=== PATIENT | female | born 1980 | race Caucasian/White ===

== ENCOUNTER 2018-09-07 20:13 | Inpatient (IN) | payer OTHER ==
[2018-09-07 21:19] LABS: Glucose,Whole Blood 159 mg/dL (75-99)
[2018-09-07 21:53] VITALS: BMI 43.5
[2018-09-07 21:56] LABS: Appearance,Urine Cloudy (Clear); Bilirubin,Urine Negative (Negative); Blood,Urine Negative (Negative); Color,Urine Yellow; Glucose,Urine (UA) Trace (Negative); Granular Casts,Urine 15 /lpf (0); Ketones,Urine Negative (Negative); Leukocyte Esterase,Urine Negative (Negative); Mucus,Urine Occasional /hpf; Nitrite,Urine Negative (Negative); Protein,Urine 1+ (Negative); RBC,Urine 1 /hpf (0-5); Squamous Epithelial Cell,Urine 4 /hpf (0-4); Urobilinogen,Urine <2.0 mg/dL (<2.0); WBC,Urine 1 /hpf (0-5)
[2018-09-07 22:01] LABS: Basophils % (A) 1 %; Eosinophils # (A) 0.1 k/uL (0-0.7); Eosinophils % (A) 1 %; HCT 36.3 % (34.0-46.0); Lymphocytes # (A) 2.1 k/uL (1.0-4.8); Lymphocytes % (A) 25 %; MCH 26.8 pg (25.0-35.0); MCHC 32.9 g/dL (31.0-37.0); MCV 81.5 fL (80.0-100.0); Mean Platelet Volume 8.1; Monocytes # (A) 0.4 k/uL (0-1.0); Monocytes % (A) 5 %; Neutrophils # (A) 5.8 k/uL (1.3-7.7); Neutrophils % (A) 68 %; Platelet Count 223 k/uL (150-450); RBC 4.46 m/uL (3.80-5.40); WBC 8.5 k/uL (3.8-10.6)
[2018-09-07 22:20] LABS: ALT 14 U/L (9-52); AST 11 U/L (14-36); Blood Urea Nitrogen 9 mg/dL (7-17); LDH 342 U/L (313-618); Uric Acid 5.6 mg/dL (3.7-7.4)
[2018-09-08] MEDS ORDERED: METHYLERGONOVINE 0.2 MG/ML 1 ML AMP IM PRN (04:52)
[2018-09-08] MEDS ORDERED: CARBOPROST TROMETHAMINE 250 MCG/ML 1 ML AMP IM PRN (04:52)
[2018-09-08] MEDS ORDERED: OXYTOCIN 10 UNIT/ML 1 ML VIAL IM PRN (04:52)
[2018-09-08] MEDS ORDERED: PENICILLIN G POTASSIUM 5,000,000 UNIT in DEXTROSE 5% IN WATER 100 ML IVPB STA ×2 (04:52)
[2018-09-08] MEDS ORDERED: LIDOCAINE 0.5% (PF) 5 MG/ML (50 ML SDV) SQ PRN (04:52)
[2018-09-08] MEDS ORDERED: TERBUTALINE 1 MG/ML VIAL SQ PRN (04:52)
[2018-09-08] MEDS ORDERED: OXYTOCIN 30 UNITS/500 ML NS 30 UNIT in SALINE 1 500ML.BAG IV SCH (05:00)
[2018-09-08] MEDS: LACTATED RINGERS 1,000 ML IV SCH (05:08)
[2018-09-08 08:08] LABS: Glucose,Whole Blood 96 mg/dL (75-99)
[2018-09-08] MEDS ORDERED: hydrALAZINE HCL 20 MG/ML 1 ML VIAL IVP STA (08:43)
[2018-09-08] MEDS ORDERED: PENICILLIN G POTASSIUM 2,500,000 UNIT in DEXTROSE 5% IN WATER 100 ML IVPB SCH ×2 (08:54)
[2018-09-08] MEDS ORDERED: INSULIN REGULAR 100 UNIT/ML VIAL SQ PRN ×3 (08:56→12:01)
[2018-09-08 09:53] LABS: Glucose,Whole Blood 285 mg/dL (75-99)
[2018-09-08 09:53] LABS: Glucose,Whole Blood 234 mg/dL (75-99)
[2018-09-08] MEDS: AMPICILLIN 1,000 MG in SODIUM CHLORIDE 0.9% 50 ML IVPB SCH (10:02)
[2018-09-08 11:05] LABS: Glucose,Whole Blood 146 mg/dL (75-99)
[2018-09-08 12:21] LABS: Glucose,Whole Blood 137 mg/dL (75-99)
[2018-09-08] MEDS ORDERED: CITRIC ACID-SODIUM CITRATE 15 ML CUP PO ONE ×2 (12:23→12:27)
[2018-09-08] MEDS ORDERED: ceFAZolin 3 GM in SODIUM CHLORIDE 0.9% 100 ML IVPB ONE (12:30)
--- NOTE | 2018-09-08 12:46 | P.HPOB ---
History of Present Illness H&P Date: 09/08/18 Chief Complaint: IUP at 37 0/7 weeks, gestational hypertension, AMA, IDDM This is a 38-year-old 5 para 4004 at 37-0/7 weeks with an estimated due date of 09/29/2018. Patient's has been complicated by a diagnosis of insulin-dependent diabetes mellitus in the first trimester. Patient has been seeing [facility] for comanagement of her insulin-dependent diabetes mellitus. Given patient's morbid obesity she is a difficult patient to follow via ultrasound and did not unreliable with blood sugars. Patient states she was unaware of any blood sugar/diabetes issues prior to . This was an unexpected but she is happy with that. Patient is also advanced maternal age, and declined any genetic screening. and upon monitoring of this fetus LGA was diagnosed. Patient had an ultrasound for growth at [place] yesterday with a weight of 9 pounds, 99th percentile. Patient has been measuring large for gestational age the entire . Patient has been receiving routine care but she is unreliable with blood sugars. On blood work showed blood type of B+, rubella is noted to be nonimmune, hepatitis B surface antigen is negative, HIV is negative, group beta strep is positive. Review of Systems Constitutional: Denies chills, Denies fatigue, Denies fever Ears, nose, mouth and throat: Denies headache Cardiovascular: Reports leg edema Respiratory: Denies cough, Denies dyspnea Gastrointestinal: Denies constipation, Denies diarrhea, Denies nausea, Denies vomiting Genitourinary: Reports Past Medical History Past Medical History: Diabetes Mellitus Additional Past Medical History / Comment(s): Carpal tunnel, arthritis History of Any Multi-Drug Resistant Organisms: None Reported Past Surgical History: Cholecystectomy, Orthopedic Surgery Additional Past Surgical History / Comment(s): Open fx repair right leg, carpal tunnel release bilateral Past Anesthesia/Blood Transfusion Reactions: No Reported Reaction Past Psychological History: No Psychological Hx Reported Smoking Status: Never smoker Past Alcohol Use History: None Reported Past Drug Use History: None Reported - Past Family History Mother Family Medical History: COPD Father History Unknown: Yes Family Medical History: Diabetes Mellitus Sister(s) Additional Family Medical History / Comment(s): cardiomyopathy Medications and Allergies Home Medications Medication Instructions Recorded Confirmed Type Acetaminophen Tab [Tylenol Tab] 1,000 mg PO Q6HR PRN 04/04/18 09/07/18 History Pedi Multivit No.25/Folic Acid 1 tab PO BID 04/04/18 09/07/18 History [Flintstones Multivit Chew Tab] Insulin Glargine,Hum.rec.anlog 20 units SQ HS 09/07/18 09/07/18 History [Basaglar Kwikpen U-100] Insulin Glargine,Hum.rec.anlog 34 units SQ QAM 09/07/18 09/07/18 History [Basaglar Kwikpen U-100] Insulin Lispro [Admelog] 12 units SQ BID 09/07/18 09/07/18 History Allergies Allergy/AdvReac Type Severity Reaction Status Date / Time cortisone Allergy Swelling Verified 09/07/18 20:18 Exam Osteopathic Statement: *. No significant issues noted on an osteopathic structural exam other than those noted in the History and Physical/Consult. Vital Signs Temp Pulse Resp BP Pulse Ox 09/07/18 21:57 97.5 F L 108 H 16 177/98 99 09/07/18 21:42 97.5 F L 96 16 179/89 Intake and Output 09/07/18 09/08/18 09/08/18 22:59 06:59 14:59 Intake Total 100 Output Total 250 Balance -250 100 Intake: Intake, IV Titration 100 Amount Penicillin G Potassium 5, 100 000,000 unit In Dextrose 5% in Water 100 ml @ 100 mls/hr IVPB ONCE STA Rx#: [id number] Output: Urine 250 Other: Weight 126.2 kg Targeted physical exam was performed in general this is a well-nourished well- developed female in no acute distress, she is noted to have nonlabored breathing heart is known to have regular rate and rhythm, abdomen is morbidly obese, heart tones are noted to be category 1 with moderate variability contractions are difficult to appreciate secondary to her morbid obesity, on cervical exam she is 3/70/-2 amniotomy is performed and clear fluid was obtained. Results Result Diagrams: 09/07/18 21:19 09/07/18 21:19 Abnormal Lab Results - Last 24 Hours (Table) 09/07/18 09/07/18 09/07/18 Range/Units 21:03 21:03 21:17 RDW (11.5-15.5) % POC Glucose (mg/dL) 159 H (75-99) mg/dL AST (14-36) U/L Urine Appearance Cloudy H (Clear) Urine Protein 1+ H (Negative) Urine Glucose (UA) Trace H (Negative) Urine Mucus Occasional H (None) /hpf U Random Total Protein 70 H (<12) mg/dL 09/07/18 09/07/18 Range/Units 21:19 21:19 RDW 16.0 H (11.5-15.5) % POC Glucose (mg/dL) (75-99) mg/dL AST 11 L (14-36) U/L Urine Appearance (Clear) Urine Protein (Negative) Urine Glucose (UA) (Negative) Urine Mucus (None) /hpf U Random Total Protein (<12) mg/dL Assessment and Plan (1) 37 weeks gestation of Current Visit: Yes Status: Acute Code(s): Z3A.37 - 37 WEEKS GESTATION OF SNOMED Code(s): 21957444 (2) Diabetes Current Visit: Yes Status: Acute Code(s): E11.9 - TYPE 2 DIABETES MELLITUS WITHOUT COMPLICATIONS SNOMED Code(s): 42959153 (3) AMA (advanced maternal age) multigravida 35+ Current Visit: Yes Status: Acute Code(s): O09.529 - SUPERVISION OF ELDERLY MULTIGRAVIDA, UNSPECIFIED TRIMESTER SNOMED Code(s): 858483572 (4) LGA (large for gestational age) fetus Current Visit: Yes Status: Acute Code(s): MKE2284 - SNOMED Code(s): 796301130 (5) Positive GBS test Current Visit: Yes Status: Acute Code(s): B95.1 - STREPTOCOCCUS, GROUP B, CAUSING DISEASES [facility]SD [facility] SNOMED Code(s): 7374958447499 Plan: Patient is admitted to labor and delivery for induction of labor secondary to gestational hypertension, advanced maternal age, diabetes, insulin-dependent, LGA. Patient had negative preeclampsia labs on admission last evening. Patient is noted to be group beta strep positive and antibiotics have been started. We will monitor blood sugars every 2 hours while in labor. If blood sugars are up of 120, we will administer 1 unit of insulin for every 20 above that level. Patient is aware of this plan. We anticipate spontaneous vaginal delivery later this afternoon.
[2018-09-08] MEDS ORDERED: MORPHINE SULFATE (PF) 0.3 MG/0.3 ML SYR ONE (12:52)
[2018-09-08] MEDS ORDERED: KETOROLAC 30 MG/ML 1 ML VIAL ONE (12:52)
[2018-09-08] MEDS ORDERED: NALBUPHINE 10 MG/ML (1 ML AMP) ONE (12:52)
[2018-09-08] MEDS ORDERED: ONDANSETRON 4 MG/2 ML VIAL ONE (12:52)
--- NOTE | 2018-09-08 13:52 | P.OP ---
Date of Procedure: 09/08/18 Preoperative Diagnosis: IUP @ 37 0/7 weeks uncontrolled IDDM, AMA, LGA, NRFHTs Postoperative Diagnosis: same Procedure(s) Performed: Primary LTCS Anesthesia: spinal Surgeon: Becki Lopez Acute Dialysis Nurse #1: Mahnaz Loo Estimated Blood Loss (ml): 500 IV fluids (ml): 800 Urine output (ml): 200 Pathology: other (placenta) Condition: stable Disposition: observation Indications for Procedure: This very pleasant 38-year-old 5 para 4 was admitted for gestational hypertension, uncontrolled diabetes mellitus, LGA, AMA. With comanagement from [facility] recommendation for delivery given size and uncontrolled diabetes was delivery at 37 weeks. Patient was started on Pitocin induction of labor on 5 AM as patient has progressed through Pitocin protocol minimal variability along with occasional lates are noted. Discussion with the patient regarding nonreassuring heart tones despite Pitocin being off is had with the patient. Need for is discussed in detail risks are reviewed including but not limited to infection, bleeding, damage to bladder, bowel, other pelvic structures. Patient states understanding of need for procedure and risks that are stated above. Will proceed to the operating room. Operative Findings: Normal uterus tubes and ovaries male infant delivered at 1314, weight of 9 lbs. 6 oz Description of Procedure: The patient was prepped and draped in the usual fashion after spinal anesthesia was administered by the anesthesia department. A Pfannenstiel incision was made and extended of the abdominal cavity without difficulty. The bladder peritoneum was elevated and incised and reflected distally. A 2 cm incision was made in the transverse plane of the lower uterine segment to enter the uterus at which time clear fluid was noted. The incision was extended in both directions using the bandage scissors. The head was encountered within the field and delivered up and through the incision where the nose and mouth were thoroughly suctioned. Remainder of the infant was delivered onto the surgical field where the cord was doubly clamped, cut, and the infant was passed for resuscitative measures with weight and Apgars as noted above. A segment of cord was then doubly clamped, cut, and set aside should cord gases become necessary. The placenta was delivered manually, intact, and was grossly normal with a grossly normal three-vessel cord. The uterus was exteriorized and the interior cavity of the uterus swept of any remaining placental and membranous fragments with a laparotomy sponge. The margins of the incision were grasped with Allis clamps and the incision closed in 2 layers. First layer was a running locking layer of 0 vicryl from margin to margin followed by a second layer of imbricating 0 vicryl from margin to margin. Any small points of bleeding were then made hemostatic with the Bovie. Once hemostasis was achieved, the posterior cul-de-sac was suctioned with a guard and the uterine and ovarian findings are as noted above. The right fallopian tube was then grasped with the Filshie clip applicator and was operated according to accounting manager assistant controller's instructions this was then repeated on the opposite side tubal ligation was complete hemostasis was appreciated both tubal sites. The uterus was replaced within the abdominal cavity and the gutters swept of any remaining blood fluid or clot. The incision was again reexamined and hemostasis was noted to be excellent. Any small point of bleeding were made hemostatic with the Bovie. Once hemostasis was achieved the parietal peritoneum was loosely reapproximated. The layer of muscles were examined and made hemostatic with the Bovie. Attention was then turned to the fascia which was closed with 2 running stitches of 0 Vicryl proceeding from the lateral margins to the midpoint. The subcutaneous tissues were irrigated, made hemostatic with the Bovie, and reapproximated with a running stitch of 30 plain catgut. The skin was reapproximated with 4-0 vicryl. Estimated blood loss for the case was approximately 500 mL. All sponge instrument and needle counts are correct. There were no complications. The patient tolerated the procedure well and proceeded to the recovery room in stable condition. Both mother and infant are resting comfortably in recovery.
[2018-09-08] MEDS ORDERED: ACETAMINOPHEN IV (For NPO) 1,000 MG in EMPTY BAG 1 BAG IVPB ONE (13:53)
[2018-09-08] MEDS ORDERED: ONDANSETRON 4 MG/2 ML VIAL IVP PRN (13:53)
[2018-09-08] MEDS ORDERED: METOCLOPRAMIDE 5 MG/ML 2 ML VIAL IVP PRN (13:53)
[2018-09-08] MEDS ORDERED: diphenhydrAMINE 25 MG CAP PO PRN (13:53)
[2018-09-08] MEDS ORDERED: diphenhydrAMINE 50 MG/ML 1 ML VIAL IVP PRN ×2 (13:53)
[2018-09-08] MEDS ORDERED: ACETAMINOPHEN TAB 325 MG TAB PO PRN (13:53)
[2018-09-08] MEDS ORDERED: NALOXONE 0.4 MG/ML 1 ML VIAL IV PRN (13:53)
[2018-09-08] MEDS ORDERED: diphenhydrAMINE 50 MG CAP PO PRN (13:53)
[2018-09-08] MEDS ORDERED: ZOLPIDEM 5 MG TAB PO PRN (13:53)
[2018-09-08] MEDS ORDERED: IBUPROFEN IV 800 MG in SODIUM CHLORIDE 0.9% 250 ML IV ONE (13:54)
[2018-09-08] MEDS ORDERED: OXYTOCIN 20 UNITS/1000 ML NS 1,000 ML IV SCH (14:00)
[2018-09-08 15:13] LABS: Glucose,Whole Blood 110 mg/dL (75-99)
[2018-09-08] MEDS ORDERED: LABETALOL 100 MG TAB PO PRN (17:23)
--- NOTE | 2018-09-08 17:45 | P.CONS ---
History of Present Illness - Reason for Consult Consult date: 09/08/18 Medical management of hyperglycemia Requesting physician: Becki Lopez - Chief Complaint Medical management of hyperglycemia - History of Present Illness 38-year-old female with PMH of carpal tunnel, gestational diabetes presents to the hospital for scheduled . [facility] has been consulted for management of hyperglycemia. Patient reports that she was diagnosed with insulin-dependent diabetes mellitus in her first trimester. She saw maternal medicine MNatalie at [place] who managed her diabetes. Patient reports that she was on 34 units in the morning for of long-acting along with 20 units at bedtime along with 12 units twice a day of short acting insulin with meals. Patient reports that her fasting blood sugars ranged from 79-125. She denies previous diagnosis of diabetes. Patient does admit to a significant family history, and her grandma, dad, multiple aunts who have been diagnosed with diabetes mellitus. Patient states that she has attempted to cut down on sweets and especially pop. Patient reports that she does not eat too much carbohydrates but does admit to eating fried chicken. She denies any abdominal bloating, numbness or tingling of any of the 4 extremities. Patient does report some polyuria and polydipsia prior to insulin administration. Patient admits that she does not exercise. As per nursing, A1c was around 11 in her first trimester and around 7 and her last trimester. Patient denies any headache, lower jessica edema, nausea, vomiting, fever, cough, chest pain, shortness of breath, changes in bowel habits. No changes in appetite or weight. No dizziness, numbness, weakness or tingling of the garfield ities. While she has been here, her blood sugars have ranged from 96-285. She has gotten a carb heavy breakfast. As per nurse, patient has gotten about 13 units of insulin since admission. Review of Systems All systems: negative Past Medical History Past Medical History: Diabetes Mellitus Additional Past Medical History / Comment(s): Carpal tunnel, arthritis History of Any Multi-Drug Resistant Organisms: None Reported Past Surgical History: Cholecystectomy, Orthopedic Surgery Additional Past Surgical History / Comment(s): Open fx repair right leg, carpal tunnel release bilateral Past Anesthesia/Blood Transfusion Reactions: No Reported Reaction Past Psychological History: No Psychological Hx Reported Smoking Status: Never smoker Past Alcohol Use History: None Reported Past Drug Use History: None Reported - Past Family History Mother Family Medical History: COPD Father History Unknown: Yes Family Medical History: Diabetes Mellitus Sister(s) Additional Family Medical History / Comment(s): cardiomyopathy Medications and Allergies Home Medications Medication Instructions Recorded Confirmed Type Acetaminophen Tab [Tylenol Tab] 1,000 mg PO Q6HR PRN 04/04/18 09/07/18 History Pedi Multivit No.25/Folic Acid 1 tab PO BID 04/04/18 09/07/18 History [Flintstones Multivit Chew Tab] Insulin Glargine,Hum.rec.anlog 20 units SQ HS 09/07/18 09/07/18 History [Basaglar Kwikpen U-100] Insulin Glargine,Hum.rec.anlog 34 units SQ QAM 09/07/18 09/07/18 History [Basaglar Kwikpen U-100] Insulin Lispro [Admelog] 12 units SQ BID 09/07/18 09/07/18 History Allergies Allergy/AdvReac Type Severity Reaction Status Date / Time cortisone Allergy Swelling Verified 09/07/18 20:18 Physical Exam Vitals: Vital Signs Temp Pulse Resp BP Pulse Ox 09/08/18 15:43 60 14 176/78 100 09/08/18 15:20 64 14 167/81 09/08/18 14:50 66 16 174/80 100 09/08/18 14:35 71 14 141/71 09/08/18 14:20 70 16 143/73 09/08/18 14:04 72 12 156/74 100 09/08/18 13:50 97.1 F L 75 16 133/66 100 09/07/18 21:57 97.5 F L 108 H 16 177/98 99 09/07/18 21:42 97.5 F L 96 16 179/89 Intake and Output 09/08/18 09/08/18 09/08/18 06:59 14:59 22:59 Intake Total 100 100 Output Total 600 Balance 100 -500 Intake: IV 100 ACETAMINOPHEN IV (For NPO 100 ) 1,000 mg In Empty Bag 1 bag @ 400 mls/hr IVPB ONCE ONE Rx#:[id number] Intake, IV Titration 100 Amount Penicillin G Potassium 5, 100 000,000 unit In Dextrose 5% in Water 100 ml @ 100 mls/hr IVPB ONCE STA Rx#: [id number] Output: Urine 600 Other: Voiding Method Indwelling Catheter Indwelling Catheter General: [non toxic], [no distress], [appears at stated age], [morbidly obese] Derm: [warm], [dry] Head: [atraumatic], [normocephalic], [symmetric] Eyes: [EOMI], [no lid lag], [anicteric sclera] Mouth: [no lip lesion], [mucus membranes moist] Cardiovascular: [S1S2 reg], [no murmur], [positive posterior tibial pulse bilateral], Lungs: [CTA bilateral], [no rhonchi, no rales] , [no accessory muscle use] Abdominal: [soft], [ nontender to palpation], [no guarding], [no appreciable organomegaly] Ext: [no gross muscle atrophy], [no edema], [no contractures] Neuro: [ CN II-XI grossly intact], [no focal neuro deficits] Psych: [Alert], [oriented], [appropriate affect] Results CBC & Chem 7: 09/07/18 21:19 09/07/18 21:19 Labs: Abnormal Lab Results - Last 24 Hours (Table) 09/07/18 09/07/18 09/07/18 Range/Units 21:03 21:03 21:17 RDW (11.5-15.5) % POC Glucose (mg/dL) 159 H (75-99) mg/dL AST (14-36) U/L Urine Appearance Cloudy H (Clear) Urine Protein 1+ H (Negative) Urine Glucose (UA) Trace H (Negative) Urine Mucus Occasional H (None) /hpf U Random Total Protein 70 H (<12) mg/dL 09/07/18 09/07/18 09/08/18 Range/Units 21:19 21:19 09:17 RDW 16.0 H (11.5-15.5) % POC Glucose (mg/dL) 234 H (75-99) mg/dL AST 11 L (14-36) U/L Urine Appearance (Clear) Urine Protein (Negative) Urine Glucose (UA) (Negative) Urine Mucus (None) /hpf U Random Total Protein (<12) mg/dL 09/08/18 09/08/18 09/08/18 Range/Units 09:20 11:02 11:56 RDW (11.5-15.5) % POC Glucose (mg/dL) 285 H 146 H 137 H (75-99) mg/dL AST (14-36) U/L Urine Appearance (Clear) Urine Protein (Negative) Urine Glucose (UA) (Negative) Urine Mucus (None) /hpf U Random Total Protein (<12) mg/dL 09/08/18 Range/Units 15:05 RDW (11.5-15.5) % POC Glucose (mg/dL) 110 H (75-99) mg/dL AST (14-36) U/L Urine Appearance (Clear) Urine Protein (Negative) Urine Glucose (UA) (Negative) Urine Mucus (None) /hpf U Random Total Protein (<12) mg/dL Assessment and Plan Assessment: Assessment and plan 1. Hyperglycemia with a history of gestational diabetes, probable type 2 diabetes mellitus 2. Status post section 1. Her blood sugars have ranged from 96-285. She was on 34 units every morning and 20 units every afternoon of long-acting along with 12 units twice a day for short acting. Patient reports that her blood sugars were well-controlled during that time. I do anticipate her insulin requirements to decrease given that her has concluded. We will start insulin sliding scale while in house. Accu-Cheks 3 times a day. Hypoglycemic precautions. Low carb diet. Consult special educator. Will follow A1c. 2. Management as per NET DEVELOPER CONSULTANT. We will calculate her insulin requirements over the span of 24 hours. We will make adjustments based on that. Follow A1c. critical care educator consulted. Thank you for this consult, we will continue to follow.
[2018-09-08 19:17] LABS: Glucose,Whole Blood 414 mg/dL (75-99)
[2018-09-08] MEDS: ceFAZolin IN SWFI 2 GM/20 ML SYRINGE IVP SCH (19:21)
[2018-09-08] MEDS: INSULIN ASPART (NovoLOG) 100 UNIT/ML VIAL SQ SCH (20:01)
[2018-09-08] MEDS: SENNOSIDES-DOCUSATE SODIUM 1 EACH TAB PO SCH (21:52)
[2018-09-08 21:53] LABS: Glucose,Whole Blood 129 mg/dL (75-99)
[2018-09-09] MEDS: ceFAZolin IN SWFI 2 GM/20 ML SYRINGE IVP SCH ×2 (03:05→11:34)
[2018-09-09 03:14] LABS: Glucose,Whole Blood 122 mg/dL (75-99)
[2018-09-09 06:41] LABS: Anisocytosis Slight; Basophils % (A) 0 %; Eosinophils # (A) 0.1 k/uL (0-0.7); Eosinophils % (A) 1 %; HCT 31.4 % (34.0-46.0); HGB 10.5 gm/dL (11.4-16.0); Lymphocytes # (A) 1.9 k/uL (1.0-4.8); Lymphocytes % (A) 17 %; MCH 27.3 pg (25.0-35.0); MCHC 33.3 g/dL (31.0-37.0); MCV 81.8 fL (80.0-100.0); Mean Platelet Volume 8.1; Monocytes # (A) 0.5 k/uL (0-1.0); Monocytes % (A) 4 %; Neutrophils # (A) 8.6 k/uL (1.3-7.7); Neutrophils % (A) 77 %; Platelet Count 186 k/uL (150-450); RBC 3.84 m/uL (3.80-5.40); RDW 16.2 % (11.5-15.5); WBC 11.2 k/uL (3.8-10.6)
--- NOTE | 2018-09-09 08:33 | P.PNOBGPC ---
Subjective - Subjective Principal diagnosis: POD 1 LTCS, AMA, LGA, IDDM,NRFHTs Interval history: Patient has done well overnight appreciate internal medicine consult regarding management of her diabetes, patient is noted to be noncompliant overnight with diet. This morning she states she had orange juice, pancakes, oatmeal with brown sugar. She states her lochia is minimal, she denies discomfort this morning. Infant remains in the nursery on high flow oxygen. She is ambulating and voiding without difficulty this morning and she is tolerating her diet without nausea or vomiting. Patient reports: Reports appetite normal, Reports voiding normally, Reports pain well controlled, Reports ambulating normally : doing well (In the nursery on high flow oxygen) Objective - Vital Signs Latest vital signs: Vital Signs Temp Pulse Resp BP Pulse Ox 09/09/18 04:00 98.3 F 92 16 132/89 09/09/18 00:00 98.3 F 98 18 138/92 09/08/18 20:00 98.3 F 62 16 122/90 100 09/08/18 15:43 60 14 176/78 100 09/08/18 15:20 64 14 167/81 09/08/18 14:50 66 16 174/80 100 09/08/18 14:35 71 14 141/71 09/08/18 14:20 70 16 143/73 09/08/18 14:04 72 12 156/74 100 09/08/18 13:50 97.1 F L 75 16 133/66 100 Intake and Output 09/08/18 09/09/18 09/09/18 22:59 06:59 14:59 Intake Total 100 32 Output Total 700 Balance -600 32 Intake: IV 100 ACETAMINOPHEN IV (For NPO 100 ) 1,000 mg In Empty Bag 1 bag @ 400 mls/hr IVPB ONCE ONE Rx#:[id number] Oral 32 Output: Urine 700 Uretheral (Mercado) 100 Other: Voiding Method Indwelling Catheter - Exam Lungs: bilateral: normal Extremities: Present: edema Abdomen: Present: normal appearance, soft Incision: Present: normal, dry, intact Uterus: Present: normal, firm - Labs Labs: Abnormal Lab Results - Last 24 Hours (Table) 09/08/18 09/08/18 09/08/18 Range/Units 09:17 09:20 11:02 WBC (3.8-10.6) k/uL Hgb (11.4-16.0) gm/dL Hct (34.0-46.0) % RDW (11.5-15.5) % Neutrophils # (1.3-7.7) k/uL POC Glucose (mg/dL) 234 H 285 H 146 H (75-99) mg/dL 09/08/18 09/08/18 09/08/18 Range/Units 11:56 15:05 19:16 WBC (3.8-10.6) k/uL Hgb (11.4-16.0) gm/dL Hct (34.0-46.0) % RDW (11.5-15.5) % Neutrophils # (1.3-7.7) k/uL POC Glucose (mg/dL) 137 H 110 H 414 H (75-99) mg/dL 09/08/18 09/09/18 09/09/18 Range/Units 21:50 02:56 06:21 WBC 11.2 H (3.8-10.6) k/uL Hgb 10.5 L (11.4-16.0) gm/dL Hct 31.4 L (34.0-46.0) % RDW 16.2 H (11.5-15.5) % Neutrophils # 8.6 H (1.3-7.7) k/uL POC Glucose (mg/dL) 129 H 122 H (75-99) mg/dL Assessment and Plan (1) 37 weeks gestation of Current Visit: Yes Status: Acute Code(s): Z3A.37 - 37 WEEKS GESTATION OF SNOMED Code(s): 85097543 (2) Diabetes Current Visit: Yes Status: Acute Code(s): E11.9 - TYPE 2 DIABETES MELLITUS WITHOUT COMPLICATIONS SNOMED Code(s): 45205702 (3) AMA (advanced maternal age) multigravida 35+ Current Visit: Yes Status: Acute Code(s): O09.529 - SUPERVISION OF ELDERLY MULTIGRAVIDA, UNSPECIFIED TRIMESTER SNOMED Code(s): 227558239 (4) LGA (large for gestational age) fetus Current Visit: Yes Status: Acute Code(s): FVZ9678 - SNOMED Code(s): 648392581 (5) Positive GBS test Current Visit: Yes Status: Acute Code(s): B95.1 - STREPTOCOCCUS, GROUP B, CAUSING DISEASES CL[facility]SD [facility] SNOMED Code(s): 6209899468804 (6) S/P section Current Visit: Yes Status: Acute Code(s): Z98.891 - HISTORY OF UTERINE SCAR FROM PREVIOUS SURGERY SNOMED Code(s): 209667789 Plan: Patient is doing well post operatively. Once again appreciate internal medicine standpoint regarding her blood sugars. Blood pressures have been within normal range. Patient states she is feeling well so will continue routine postoperative care.
[2018-09-09] MEDS: SENNOSIDES-DOCUSATE SODIUM 1 EACH TAB PO SCH ×3 (08:56→19:29)
[2018-09-09] MEDS: INSULIN ASPART (NovoLOG) 100 UNIT/ML VIAL SQ SCH ×3 (08:57→18:09)
[2018-09-09 09:47] LABS: Glucose,Whole Blood 177 mg/dL (75-99)
[2018-09-09] MEDS: IBUPROFEN 600 MG TAB PO PRN ×2 (11:41→19:29)
[2018-09-09 12:00] LABS: Glucose,Whole Blood 119 mg/dL (75-99)
[2018-09-09 14:42] LABS: Hemoglobin A1C 7.3 % (4.0-6.0)
[2018-09-09 14:54] LABS: Glucose,Whole Blood 168 mg/dL (75-99)
[2018-09-09 18:06] LABS: Glucose,Whole Blood 133 mg/dL (75-99)
--- NOTE | 2018-09-09 18:14 | P.PN ---
Subjective Progress Note Date: 09/09/18 Principal diagnosis: Hyperglycemia Patient was seen and examined. No acute events overnight. Patient with no complaints this morning. Blood glucose ranging from 122-177 today. Her fasting blood sugar was 177. She has not received any correctional units of insulin. Objective - Vital Signs Vital signs: Vital Signs Temp 97.4 F L 09/09/18 15:30 Pulse 93 09/09/18 15:30 Resp 17 09/09/18 15:30 BP 118/88 09/09/18 15:30 Pulse Ox 100 09/08/18 20:00 Intake & Output 09/08/18 09/09/18 09/09/18 18:59 06:59 18:59 Intake Total 200 32 120 Output Total 600 100 450 Balance -400 -68 -330 Intake: IV 100 ACETAMINOPHEN IV (For NPO 100 ) 1,000 mg In Empty Bag 1 bag @ 400 mls/hr IVPB ONCE ONE Rx#:[id number] Intake, IV Titration 100 Amount Penicillin G Potassium 5, 100 000,000 unit In Dextrose 5% in Water 100 ml @ 100 mls/hr IVPB ONCE STA Rx#: [id number] Oral 32 120 Output: Urine 600 100 450 Uretheral (Mercado) 100 Other: Voiding Method Indwelling Catheter Toilet # Voids 1 - Exam General: [non toxic], [no distress], [appears at stated age], [morbidly obese] Derm: [warm], [dry] Head: [atraumatic], [normocephalic], [symmetric] Eyes: [EOMI], [no lid lag], [anicteric sclera] Mouth: [no lip lesion], [mucus membranes moist] Cardiovascular: [S1S2 reg], [no murmur], [positive posterior tibial pulse bilateral], Lungs: [CTA bilateral], [no rhonchi, no rales] , [no accessory muscle use] Abdominal: [soft], [ nontender to palpation], [no guarding], [no appreciable organomegaly] Ext: [no gross muscle atrophy], [no edema], [no contractures] Neuro: [ CN II-XI grossly intact], [no focal neuro deficits] Psych: [Alert], [oriented], [appropriate affect] - Labs CBC & Chem 7: 09/09/18 06:21 09/07/18 21:19 Labs: Abnormal Lab Results - Last 24 Hours (Table) 09/08/18 09/08/18 09/09/18 Range/Units 19:16 21:50 02:56 WBC (3.8-10.6) k/uL Hgb (11.4-16.0) gm/dL Hct (34.0-46.0) % RDW (11.5-15.5) % Neutrophils # (1.3-7.7) k/uL POC Glucose (mg/dL) 414 H 129 H 122 H (75-99) mg/dL Hemoglobin A1c (4.0-6.0) % 09/09/18 09/09/18 09/09/18 Range/Units 06:21 06:21 09:38 WBC 11.2 H (3.8-10.6) k/uL Hgb 10.5 L (11.4-16.0) gm/dL Hct 31.4 L (34.0-46.0) % RDW 16.2 H (11.5-15.5) % Neutrophils # 8.6 H (1.3-7.7) k/uL POC Glucose (mg/dL) 177 H (75-99) mg/dL Hemoglobin A1c 7.3 H (4.0-6.0) % 09/09/18 09/09/18 09/09/18 Range/Units 11:54 14:45 17:59 WBC (3.8-10.6) k/uL Hgb (11.4-16.0) gm/dL Hct (34.0-46.0) % RDW (11.5-15.5) % Neutrophils # (1.3-7.7) k/uL POC Glucose (mg/dL) 119 H 168 H 133 H (75-99) mg/dL Hemoglobin A1c (4.0-6.0) % Assessment and Plan Assessment: Assessment and plan 1. Hyperglycemia with a history of gestational diabetes, probable type 2 diabetes mellitus 2. Status post section 1. Her blood sugars have ranged from 119-177. She was on 34 units every morning and 20 units every afternoon of long-acting along with 12 units twice a day for short acting. Patient reports that her blood sugars were well- controlled during that time. I do anticipate her insulin requirements to decrease given that her has concluded. We will start insulin sliding scale while in house and add Levemir 10 units at bedtime. Accu-Cheks 3 times a day. Hypoglycemic precautions. Low carb diet. Consult asthma educator. A1c is 7.3. 2. Management as per [facility]. Patient has not needed any correctional units of insulin since yesterday's blood sugar of 414 where she received 12 units of fast acting insulin. We will start Levemir 10 units at bedtime for better fasting blood sugar in better glycemic control overnight. coding educator consulted. Thank you for this consult, we will continue to follow.
[2018-09-09] MEDS: LACTATED RINGERS 1,000 ML IV SCH ×3 (20:20→20:32)
[2018-09-09] MEDS: AMPICILLIN 1,000 MG in SODIUM CHLORIDE 0.9% 50 ML IVPB SCH (20:31)
[2018-09-09] MEDS ORDERED: INSULIN DETEMIR (LEVEMIR) 100 UNIT/ML SYR SQ SCH (21:00)
[2018-09-09 21:31] LABS: Glucose,Whole Blood 215 mg/dL (75-99)
[2018-09-09] MEDS: HYDROcodone/APAP 5-325MG 1 EACH TAB PO PRN (22:44)
[2018-09-10] MEDS: IBUPROFEN 600 MG TAB PO PRN ×2 (01:43→21:55)
[2018-09-10 07:37] LABS: Glucose,Whole Blood 102 mg/dL (75-99)
[2018-09-10] MEDS: SENNOSIDES-DOCUSATE SODIUM 1 EACH TAB PO SCH ×2 (07:56→20:50)
[2018-09-10] MEDS: HYDROcodone/APAP 5-325MG 1 EACH TAB PO PRN ×3 (07:56→23:02)
[2018-09-10] MEDS: INSULIN ASPART (NovoLOG) 100 UNIT/ML VIAL SQ SCH ×3 (07:58→17:25)
[2018-09-10 09:54] LABS: Glucose,Whole Blood 175 mg/dL (75-99)
--- NOTE | 2018-09-10 12:01 | P.PNOBGPC ---
Subjective - Subjective Interval history: Feeling well, pain controlled. Blood sugars improved with long-acting insulin. Patient reports: Reports appetite normal, Reports voiding normally, Reports pain well controlled, Reports ambulating normally, Denies dizzy ambulation, Denies nauseated [place]: doing well, in NICU Objective - Vital Signs Latest vital signs: Vital Signs Temp Pulse Resp BP Pulse Ox 09/10/18 08:00 98.5 F 84 16 141/86 09/09/18 23:25 98.7 F 108 H 18 131/73 97 09/09/18 15:30 97.4 F L 93 17 118/88 - Exam Extremities: Present: normal, edema Abdomen: Present: normal appearance, soft, other (Obese with pannus). Absent: tenderness Incision: Present: normal, dry, intact. Absent: erythematous, edematous Uterus: Absent: tenderness - Labs Labs: Abnormal Lab Results - Last 24 Hours (Table) 09/09/18 09/09/18 09/09/18 Range/Units 06:21 11:54 14:45 POC Glucose (mg/dL) 119 H 168 H (75-99) mg/dL Hemoglobin A1c 7.3 H (4.0-6.0) % 09/09/18 09/09/18 09/10/18 Range/Units 17:59 21:30 07:35 POC Glucose (mg/dL) 133 H 215 H 102 H (75-99) mg/dL Hemoglobin A1c (4.0-6.0) % 09/10/18 Range/Units 09:52 POC Glucose (mg/dL) 175 H (75-99) mg/dL Hemoglobin A1c (4.0-6.0) % Assessment and Plan (1) 37 weeks gestation of Current Visit: Yes Status: Acute Code(s): Z3A.37 - 37 WEEKS GESTATION OF SNOMED Code(s): 72049075 (2) AMA (advanced maternal age) multigravida 35+ Current Visit: Yes Status: Acute Code(s): O09.529 - SUPERVISION OF ELDERLY MULTIGRAVIDA, UNSPECIFIED TRIMESTER SNOMED Code(s): 906672795 (3) Diabetes Narrative/Plan: Transition from insulin to oral hypoglycemics today per medicine consultation. Current Visit: Yes Status: Acute Code(s): E11.9 - TYPE 2 DIABETES MELLITUS WITHOUT COMPLICATIONS SNOMED Code(s): 10090089 (4) LGA (large for gestational age) fetus Current Visit: Yes Status: Acute Code(s): VAL2759 - SNOMED Code(s): 088620388 (5) Positive GBS test Current Visit: Yes Status: Acute Code(s): B95.1 - STREPTOCOCCUS, GROUP B, CAUSING DISEASES CLASSD ELSR SNOMED Code(s): 1787514468250 (6) S/P section Narrative/Plan: Recovering well, routine care Current Visit: Yes Status: Acute Code(s): Z98.891 - HISTORY OF UTERINE SCAR FROM PREVIOUS SURGERY SNOMED Code(s): 675455828 (7) Hypertension complicating Narrative/Plan: Pressure stable, labetalol when necessary Current Visit: Yes Status: Acute Code(s): O16.9 - UNSPECIFIED MATERNAL HYPERTENSION, UNSPECIFIED TRIMESTER SNOMED Code(s): 92307863169876
[2018-09-10] MEDS ORDERED: MEASLES-MUMPS-RUBELLA VACC/PF 12,500 UNIT/0.5 ML VIAL SQ ONE (12:03)
--- NOTE | 2018-09-10 12:24 | P.PN ---
Subjective Progress Note Date: 09/10/18 Outpatient setting exam at bedside, up and ambulating, I discussed options regarding diabetic regimen. Patient reporting that she does not plan to breast- feed and wants to transition to oral diabetic regimen as possible. Currently having stable blood sugars on insulin Objective - Vital Signs Vital signs: Vital Signs Temp 98.5 F 09/10/18 08:00 Pulse 84 09/10/18 08:00 Resp 16 09/10/18 08:00 BP 141/86 09/10/18 08:00 Pulse Ox 97 09/09/18 23:25 Intake & Output 09/09/18 09/10/18 09/10/18 18:59 06:59 18:59 Intake Total 120 Output Total 450 Balance -330 Intake: Oral 120 Output: Urine 450 Other: Voiding Method Toilet # Voids 1 - Exam Constitutional: No acute distress, conversant, pleasant Eyes: Anicteric sclerae, moist conjunctiva, no lid-lag, PERRLA ENMT: NC/AT,Oropharynx clear, no erythema, exudates Neck:Supple, FROM, no masses, or JVD, No carotid bruits; No thyromegaly Lungs: Clear to auscultation, Clear to percussion, Normal respiratory effort, no accessory muscle use Cardiovascular: Heart regular in rate and rhythm, No murmurs, gallops, lower extremity edema Abdominal: Soft tender to palpation, obese with pannus, no guarding, no rebound or rigidity, Normoactive bowel sounds No hepatomegaly, No splenomegaly, No palpable mass No abdominal wall hernia noted Skin: Normal temperature, tone, texture, turgor, No induration No subcutaneous nodules, No rash, lesions, No ulcers Extremities:No digital cyanosis No clubbing, Pedal pulses intact and symmetrical Radial pulses intact and symmetrical Normal gait and station, No calf tenderness Psychiatric: Alert and oriented to person, place and time, Appropriate affect Intact judgement Neuro: Muscles Strength 5/5 in all 4 extremities, Sensation to light touch grossly present throughout, Cranial nerves II-XII grossly intact. No focal sensory deficits - Labs CBC & Chem 7: 09/09/18 06:21 09/07/18 21:19 Labs: Abnormal Lab Results - Last 24 Hours (Table) 09/09/18 09/09/18 09/09/18 Range/Units 06:21 14:45 17:59 POC Glucose (mg/dL) 168 H 133 H (75-99) mg/dL Hemoglobin A1c 7.3 H (4.0-6.0) % 09/09/18 09/10/18 09/10/18 Range/Units 21:30 07:35 09:52 POC Glucose (mg/dL) 215 H 102 H 175 H (75-99) mg/dL Hemoglobin A1c (4.0-6.0) % Assessment and Plan (1) Diabetes Narrative/Plan: * Patient with hemoglobin A1c of 7.3 previously a gestational diabetic with no plans to breast-feed * We'll transition from insulin to metformin 1000 mg by mouth twice a day and trajenta 5 mg by mouth daily while here and Januvia on discharge * Continue Accu-Cheks we'll monitor Current Visit: Yes Status: Acute Code(s): E11.9 - TYPE 2 DIABETES MELLITUS WITHOUT COMPLICATIONS SNOMED Code(s): 25247661 (2) Gestational diabetes Current Visit: Yes Status: Acute Code(s): O24.419 - GESTATIONAL DIABETES MELLITUS IN , UNSP CONTROL SNOMED Code(s): 31378653
[2018-09-10 12:28] LABS: Glucose,Whole Blood 105 mg/dL (75-99)
[2018-09-10 17:22] LABS: Glucose,Whole Blood 161 mg/dL (75-99)
[2018-09-10] MEDS: metFORMIN 500 MG TAB PO SCH (20:50)
[2018-09-10 22:00] LABS: Glucose,Whole Blood 107 mg/dL (75-99)
[2018-09-11] MEDS: HYDROcodone/APAP 5-325MG 1 EACH TAB PO PRN ×3 (06:53→22:30)
[2018-09-11 07:22] LABS: Glucose,Whole Blood 109 mg/dL (75-99)
[2018-09-11] MEDS: SENNOSIDES-DOCUSATE SODIUM 1 EACH TAB PO SCH ×2 (07:26→19:52)
[2018-09-11] MEDS: LINAGLIPTIN 5 MG TABLET PO SCH (07:27)
[2018-09-11] MEDS: metFORMIN 500 MG TAB PO SCH ×2 (07:27→17:09)
[2018-09-11] MEDS: INSULIN ASPART (NovoLOG) 100 UNIT/ML VIAL SQ SCH (08:27)
--- NOTE | 2018-09-11 10:53 | P.PNOBGPC ---
Subjective - Subjective Principal diagnosis: Postop day 3 Interval history: Sore overnight but overall feels she is recovering well. Much happier on oral diabetic medications not insulin. Patient reports: Reports appetite normal, Reports voiding normally, Reports pain well controlled, Reports ambulating normally, Denies dizzy ambulation, Denies nauseated : doing well, in NICU Objective - Vital Signs Latest vital signs: Vital Signs Temp Pulse Resp BP Pulse Ox 09/11/18 08:00 98.7 F 87 14 154/94 09/10/18 23:40 98.4 F 104 H 18 146/86 98 09/10/18 16:00 99.2 F 106 H 14 144/89 Intake and Output 09/10/18 09/11/18 09/11/18 22:59 06:59 14:59 Other: # Voids 1 - Exam Extremities: Present: edema (1+) Abdomen: Present: normal appearance, soft, other (Obese with pannus) Incision: Present: normal, dry, intact. Absent: erythematous, edematous Uterus: Present: other (Unable to palpate) - Labs Labs: Abnormal Lab Results - Last 24 Hours (Table) 09/10/18 09/10/18 09/10/18 Range/Units 12:23 17:20 21:54 POC Glucose (mg/dL) 105 H 161 H 107 H (75-99) mg/dL 09/11/18 Range/Units 07:18 POC Glucose (mg/dL) 109 H (75-99) mg/dL Assessment and Plan (1) 37 weeks gestation of Current Visit: Yes Status: Acute Code(s): Z3A.37 - 37 WEEKS GESTATION OF SNOMED Code(s): 97482926 (2) AMA (advanced maternal age) multigravida 35+ Current Visit: Yes Status: Acute Code(s): O09.529 - SUPERVISION OF ELDERLY MULTIGRAVIDA, UNSPECIFIED TRIMESTER SNOMED Code(s): 419693223 (3) Diabetes Narrative/Plan: Currently on metformin 1000 mg twice a day and tradjenta with stable blood sugars Current Visit: Yes Status: Acute Code(s): E11.9 - TYPE 2 DIABETES MELLITUS WITHOUT COMPLICATIONS SNOMED Code(s): 56325643 (4) LGA (large for gestational age) fetus Current Visit: Yes Status: Acute Code(s): IRM7704 - SNOMED Code(s): 681698833 (5) Positive GBS test Current Visit: Yes Status: Acute Code(s): B95.1 - STREPTOCOCCUS, GROUP B, CAUSING DISEASES CLASSD ELSWHR SNOMED Code(s): 7289479453013 (6) S/P section Narrative/Plan: Postop day 3, incision healing well, routine care. Current Visit: Yes Status: Acute Code(s): Z98.891 - HISTORY OF UTERINE SCAR FROM PREVIOUS SURGERY SNOMED Code(s): 826753858 (7) Hypertension complicating Narrative/Plan: Blood pressures remained borderline elevated. They're currently Lower then immediately post delivery however we will continue to monitor. She has parameters for labetalol when necessary. May consider home on antihypertensive. PIH signs and symptoms reviewed with the patient. Current Visit: Yes Status: Acute Code(s): O16.9 - UNSPECIFIED MATERNAL HYPERTENSION, UNSPECIFIED TRIMESTER SNOMED Code(s): 58105415490600 Plan: Probable discharge home tomorrow.
[2018-09-11 12:16] LABS: Glucose,Whole Blood 113 mg/dL (75-99)
--- NOTE | 2018-09-11 12:43 | P.PN ---
Subjective Progress Note Date: 09/11/18 Outpatient setting exam at bedside, up and ambulating. Patient denies any chest pain and headaches blurry vision, she reports blood pressure continues to be elevated, otherwise no acute events overnight Objective - Vital Signs Vital signs: Vital Signs Temp 98.7 F 09/11/18 08:00 Pulse 87 09/11/18 08:00 Resp 14 09/11/18 08:00 BP 154/94 09/11/18 08:00 Pulse Ox 98 09/10/18 23:40 Intake & Output 09/10/18 09/11/18 09/11/18 18:59 06:59 18:59 Other: # Voids 1 - Exam Constitutional: No acute distress, conversant, pleasant Eyes: Anicteric sclerae, moist conjunctiva, no lid-lag, PERRLA ENMT: NC/AT,Oropharynx clear, no erythema, exudates Neck:Supple, FROM, no masses, or JVD, No carotid bruits; No thyromegaly Lungs: Clear to auscultation, Clear to percussion, Normal respiratory effort, no accessory muscle use Cardiovascular: Heart regular in rate and rhythm, No murmurs, gallops, lower extremity edema Abdominal: Soft tender to palpation, obese with pannus, no guarding, no rebound or rigidity, Normoactive bowel sounds No hepatomegaly, No splenomegaly, No palpable mass No abdominal wall hernia noted Skin: Normal temperature, tone, texture, turgor, No induration No subcutaneous nodules, No rash, lesions, No ulcers Extremities:No digital cyanosis No clubbing, Pedal pulses intact and symmetrical Radial pulses intact and symmetrical Normal gait and station, No calf tenderness Psychiatric: Alert and oriented to person, place and time, Appropriate affect Intact judgement Neuro: Muscles Strength 5/5 in all 4 extremities, Sensation to light touch grossly present throughout, Cranial nerves II-XII grossly intact. No focal sensory deficits - Labs CBC & Chem 7: 09/09/18 06:21 09/07/18 21:19 Labs: Abnormal Lab Results - Last 24 Hours (Table) 09/10/18 09/10/18 09/11/18 Range/Units 17:20 21:54 07:18 POC Glucose (mg/dL) 161 H 107 H 109 H (75-99) mg/dL 09/11/18 Range/Units 12:14 POC Glucose (mg/dL) 113 H (75-99) mg/dL Assessment and Plan (1) Diabetes Narrative/Plan: * Patient with stable blood sugars * Patient with hemoglobin A1c of 7.3 previously a gestational diabetic with no plans to breast-feed * Continue with metformin 1000 mg by mouth twice a day and trajenta 5 mg by mouth daily while here and Januvia on discharge * Continue Accu-Cheks we'll monitor Current Visit: Yes Status: Acute Code(s): E11.9 - TYPE 2 DIABETES MELLITUS WITHOUT COMPLICATIONS SNOMED Code(s): 04371259 (2) Gestational diabetes Current Visit: Yes Status: Acute Code(s): O24.419 - GESTATIONAL DIABETES MELLITUS IN , UNSP CONTROL SNOMED Code(s): 96631043 (3) hypertension Narrative/Plan: * Patient's blood pressure has been elevated she continues to deny headaches blurry vision or chest pain * We'll continue to monitor blood pressure and plan to start an oral agent if BP is greater than 160/110 mmHg Current Visit: Yes Status: Acute Code(s): O16.5 - UNSPECIFIED MATERNAL HYPERTENSION, COMP THE PUERPERIUM SNOMED Code(s): 16990999
[2018-09-11 17:07] LABS: Glucose,Whole Blood 159 mg/dL (75-99)
[2018-09-11] MEDS ORDERED: NIFEdipine XL 30 MG TAB.ER.24 PO STA (17:51)
[2018-09-11 20:21] LABS: Glucose,Whole Blood 146 mg/dL (75-99)
[2018-09-12] MEDS: metFORMIN 500 MG TAB PO SCH ×2 (07:33→17:32)
[2018-09-12 07:36] LABS: Glucose,Whole Blood 115 mg/dL (75-99)
[2018-09-12] MEDS: IBUPROFEN 600 MG TAB PO PRN (07:37)
[2018-09-12] MEDS: SENNOSIDES-DOCUSATE SODIUM 1 EACH TAB PO SCH (08:32)
[2018-09-12] MEDS ORDERED: NIFEdipine XL 90 MG TAB.ER.24 PO SCH (09:00)
[2018-09-12] MEDS: LINAGLIPTIN 5 MG TABLET PO SCH (09:04)
[2018-09-12 09:08] LABS: Anisocytosis Slight; HCT 31.7 % (34.0-46.0); HGB 10.1 gm/dL (11.4-16.0); Hypochromasia Slight; MCH 26.8 pg (25.0-35.0); MCV 83.8 fL (80.0-100.0); Mean Platelet Volume 7.4; Platelet Count 236 k/uL (150-450); RBC 3.78 m/uL (3.80-5.40); RDW 16.3 % (11.5-15.5); WBC 7.6 k/uL (3.8-10.6)
[2018-09-12 09:18] LABS: ALT 19 U/L (9-52); AST 18 U/L (14-36); Blood Urea Nitrogen 11 mg/dL (7-17)
--- NOTE | 2018-09-12 09:19 | P.PN ---
Subjective Progress Note Date: 09/12/18 Patient seen and examined at bedside, complaining of headaches this morning. Blood pressure is been elevated per nursing as high 162/101, otherwise no acute events Objective - Vital Signs Vital signs: Vital Signs Temp 98.0 F 09/12/18 07:45 Pulse 108 H 09/12/18 07:45 Resp 18 09/12/18 07:45 BP 152/96 09/12/18 07:45 Pulse Ox 99 09/12/18 07:45 - Exam Constitutional: No acute distress, conversant, pleasant Eyes: Anicteric sclerae, moist conjunctiva, no lid-lag, PERRLA ENMT: NC/AT,Oropharynx clear, no erythema, exudates Neck:Supple, FROM, no masses, or JVD, No carotid bruits; No thyromegaly Lungs: Clear to auscultation, Clear to percussion, Normal respiratory effort, no accessory muscle use Cardiovascular: Heart regular in rate and rhythm, No murmurs, gallops, lower extremity edema Abdominal: Soft tender to palpation, obese with pannus, no guarding, no rebound or rigidity, Normoactive bowel sounds No hepatomegaly, No splenomegaly, No palpable mass No abdominal wall hernia noted Skin: Normal temperature, tone, texture, turgor, No induration No subcutaneous nodules, No rash, lesions, No ulcers Extremities:No digital cyanosis No clubbing, Pedal pulses intact and symmetrical Radial pulses intact and symmetrical Normal gait and station, No calf tenderness Psychiatric: Alert and oriented to person, place and time, Appropriate affect Intact judgement Neuro: Muscles Strength 5/5 in all 4 extremities, Sensation to light touch grossly present throughout, Cranial nerves II-XII grossly intact. No focal sensory deficits - Labs CBC & Chem 7: 09/09/18 06:21 09/07/18 21:19 Labs: Abnormal Lab Results - Last 24 Hours (Table) 09/11/18 09/11/18 09/11/18 Range/Units 12:14 17:03 20:18 POC Glucose (mg/dL) 113 H 159 H 146 H (75-99) mg/dL 09/12/18 Range/Units 07:32 POC Glucose (mg/dL) 115 H (75-99) mg/dL Assessment and Plan (1) Diabetes Narrative/Plan: * Patient with stable blood sugars * Patient with hemoglobin A1c of 7.3 previously a gestational diabetic with no plans to breast-feed * Continue with metformin 1000 mg by mouth twice a day and trajenta 5 mg by mouth daily while here and Januvia on discharge * Continue Accu-Cheks we'll monitor Current Visit: Yes Status: Acute Code(s): E11.9 - TYPE 2 DIABETES MELLITUS WITHOUT COMPLICATIONS SNOMED Code(s): 38499407 (2) Gestational diabetes Current Visit: Yes Status: Acute Code(s): O24.419 - GESTATIONAL DIABETES MELLITUS IN , UNSP CONTROL SNOMED Code(s): 57488225 (3) hypertension Narrative/Plan: * Patient's blood pressure has been elevated now complaining of headaches * Antihypertensive regimen recommended BP is greater than 160/110 mmHg * Initiated Procardia XL 90 mg PO daily * Continue to monitor, will also discontinue ibuprofen or any other NSAIDs Current Visit: Yes Status: Acute Code(s): O16.5 - UNSPECIFIED MATERNAL HYPERTENSION, COMP THE PUERPERIUM SNOMED Code(s): 86060317 Plan: Disposition * We'll continue to monitor for the next 24 hrs
--- NOTE | 2018-09-12 10:54 | P.DS ---
Providers Date of admission: 09/07/18 20:58 Expected date of discharge: 09/12/18 Attending physician: Becki Lopez Consults: 09/08/18 13:52 Consult Physician Urgent Consulting Provider: Becki Lopez Consult Reason/Comments: diabetes management Do you want consulting provider notified?: Yes Primary care physician: Stated None - Discharge Diagnosis(es) (1) 37 weeks gestation of Current Visit: Yes Status: Acute (2) Diabetes Current Visit: Yes Status: Acute (3) AMA (advanced maternal age) multigravida 35+ Current Visit: Yes Status: Acute (4) LGA (large for gestational age) fetus Current Visit: Yes Status: Acute (5) Positive GBS test Current Visit: Yes Status: Acute (6) S/P section Current Visit: Yes Status: Acute Hospital Course: This is a very pleasant 38-year-old 5 para 4004 that presented to labor and delivery at 37 and 0 for induction of labor secondary to uncontrolled diabetes mellitus diagnosed in the first trimester. Patient has been seeing, and the family department for comanagement of this condition. Given patient's morbid obesity she has been difficult to follow the ultrasound and was unreliabl e with her blood sugars. She states she is unaware of any blood sugar diabetic issues prior to this and this was an unexpected happy with it. Patient was admitted to labor and delivery Pitocin induction was begun amniotomy was performed clear fluid was obtained. heart tones progressed to consistent plates and nonreassuring pattern and therefore a primary low transverse section was performed with tubal ligation per patient request. Patient's postoperative course has been uneventful but blood sugars remained an issue, internal medicine was consulted and she is now under better control with oral management of her diabetes. Pressures have been labile and she is currently on Procardia per internal medicine recommendations in addition. Prescriptions are written for her through internal medicine. Patient delivered a viable male at 1314, weight of 9 lbs. 6 oz. Infant was in the nursery after delivery for respiratory difficulties and jaundice. On this postop day #4 she is awaiting repeat labs and they are thinking he should be discharged home on day of life 5. Patient Condition at Discharge: Good Plan - Discharge Summary New Discharge Prescriptions: No Action Pedi Multivit No.25/Folic Acid [Flintstones Multivit Chew Tab] 1 tab PO BID Acetaminophen Tab [Tylenol Tab] 1,000 mg PO Q6HR PRN PRN Reason: Pain Insulin Lispro [Admelog] 12 units SQ BID Insulin Glargine,Hum.rec.anlog [Basaglar Kwikpen U-100] 34 units SQ QAM Insulin Glargine,Hum.rec.anlog [Basaglar Kwikpen U-100] 20 units SQ HS Discharge Medication List Acetaminophen Tab [Tylenol Tab] 1,000 mg PO Q6HR PRN 04/04/18 [History] Pedi Multivit No.25/Folic Acid [Flintstones Multivit Chew Tab] 1 tab PO BID 04/04/18 [History] Insulin Glargine,Hum.rec.anlog [Basaglar Kwikpen U-100] 20 units SQ HS 09/07/18 [History] Insulin Glargine,Hum.rec.anlog [Basaglar Kwikpen U-100] 34 units SQ QAM 09/07/18 [History] Insulin Lispro [Admelog] 12 units SQ BID 09/07/18 [History] Follow up Appointment(s)/Referral(s): Becki Lopez DO [Doctor of Osteopathic Medicine] - 2 Weeks Patient Instructions/Handouts: (DC), (GEN) Activity/Diet/Wound Care/Special Instructions: Patient is counseled on the importance of keeping her incision clean and dry to armendariz off infection. Patient is urged to follow instructions regarding blood pressure and but sugar management per internal medicine. She is to follow-up with her primary care physician in addition for continued follow-up of these conditions Discharge Disposition: HOME SELF-CARE
[2018-09-12 12:22] LABS: Glucose,Whole Blood 135 mg/dL (75-99)
[2018-09-12] MEDS: HYDROcodone/APAP 5-325MG 1 EACH TAB PO PRN (12:23)
[2018-09-12 12:33] VITALS: RESP 16
[2018-09-12 17:02] VITALS: BP 130/81; PULSE 118; TEMP 97.5
== END 2018-09-12 17:30 | disposition home or self-care (01) | DRG 785 ==
LOC: FBPOP 20:13 → 4FBP 20:58
PROVIDERS: ADMIT Obstetrics & Gynecology Obstetrics; ATTEND Obstetrics & Gynecology Obstetrics
PROC: 10D00Z1 Extraction of Products of Conception, Low, Open Approach (ICD-10-PCS; principal; 2018-09-08)
PROC: 0UL70CZ Occlusion of Bilateral Fallopian Tubes with Extraluminal Device, Open Approach (ICD-10-PCS; 2018-09-08)
PROC: 3E033VJ Introduction of Other Hormone into Peripheral Vein, Percutaneous Approach (ICD-10-PCS; 2018-09-08)
PROC: 3E0234Z Introduction of Serum, Toxoid and Vaccine into Muscle, Percutaneous Approach (ICD-10-PCS; 2018-09-10)
DX: O13.4 Gestational [pregnancy-induced] hypertension without significant proteinuria, complicating childbirth (principal); E11.65 Type 2 diabetes mellitus with hyperglycemia; E66.01 Morbid (severe) obesity due to excess calories; O99.214 Obesity complicating childbirth; O36.63X0 Maternal care for excessive fetal growth, third trimester, not applicable or unspecified; M19.90 Unspecified osteoarthritis, unspecified site; O99.824 Streptococcus B carrier state complicating childbirth; O99.52 Diseases of the respiratory system complicating childbirth; O99.62 Diseases of the digestive system complicating childbirth; K21.9 Gastro-esophageal reflux disease without esophagitis; J45.909 Unspecified asthma, uncomplicated; O76 Abnormality in fetal heart rate and rhythm complicating labor and delivery; Z37.0 Single live birth; Z3A.37 37 weeks gestation of pregnancy; Z23 Encounter for immunization; Z30.2 Encounter for sterilization; Z79.4 Long term (current) use of insulin; Z79.899 Other long term (current) drug therapy; Z90.49 Acquired absence of other specified parts of digestive tract; Z88.8 Allergy status to other drugs, medicaments and biological substances; Z82.5 Family history of asthma and other chronic lower respiratory diseases; Z83.3 Family history of diabetes mellitus; Z82.49 Family history of ischemic heart disease and other diseases of the circulatory system
CPT/HCPCS: 59025; 81001; 82565; 82570; 83036; 83615; 84156; 84450; 84460; 84520; 84550; 85025; 85027; 86850; 86900; 86901; 88307; 90471; 90707; 99213